=== PATIENT | female | born 1965 | race Caucasian/White ===

== ENCOUNTER → 2020-03-04 | Outpatient (CLI) | payer BC ==
--- NOTE | 2020-03-04 21:05 | RAD ---
EXAM DESCRIPTION: Foot,Right 3 Views: CR/DR/XR CLINICAL HISTORY: 54 years Female PAIN IN RIGHT FOOT COMPARISON: None. TECHNIQUE: 3 VIEWS AP. Lateral. Oblique. Right foot. FINDINGS: The Body part is in a cast which limits fine detail. Oblique fracture with minimal separation in the right fifth metatarsal. Distal metatarsal is displaced slightly medially. This MTP joint and fifth tarsometatarsal joints are intact. No other fractures. IMPRESSION: Slightly oblique fracture of the mid shaft of the right fifth metatarsal with tarsometatarsal joint and metatarsophalangeal joints intact. Electronically signed by: Alli Brian MD 03/04/2020 9:03 PM [facility]
--- NOTE | 2020-03-28 15:27 | RAD ---
EXAM DESCRIPTION: Foot,Right 3 Views: CR/DR/XR CLINICAL HISTORY: 54 years Female PAIN IN RIGHT FOOT COMPARISON: None. TECHNIQUE: 3 VIEWS AP. Lateral. Oblique. Right foot. FINDINGS: The Body part is in a cast which limits fine detail. Oblique fracture with minimal separation in the right fifth metatarsal. Distal metatarsal is displaced slightly medially. This MTP joint and fifth tarsometatarsal joints are intact. No other fractures. IMPRESSION: Slightly oblique fracture of the mid shaft of the right fifth metatarsal with tarsometatarsal joint and metatarsophalangeal joints intact. Electronically signed by: Alli Brian MD 03/04/2020 9:03 PM [facility]
== END ==
LOC: RAD 07:39
PROVIDERS: ATTEND Orthopaedic Surgery
DX: S92.351A Displaced fracture of fifth metatarsal bone, right foot, initial encounter for closed fracture (principal)

== ENCOUNTER → 2020-03-18 | Outpatient (CLI) | payer BC ==
--- NOTE | 2020-04-05 10:57 | RAD ---
EXAM DESCRIPTION: Foot,Right 3 Views CLINICAL HISTORY: 54 years Female, CLOSED FX OF FIFTH METATARSAL BONE COMPARISON: Right foot radiographs 03/04/2020 TECHNIQUE: 3 view radiograph of the right foot. IMPRESSION: Redemonstrated oblique fracture with slight separation as before through the fifth metatarsal without intra-articular extension. There is mild sclerosis along the fracture system with healing process. No acute displaced fracture. Remaining structures in normal anatomic alignment. No hallux size deformity. Lisfranc joint intact. Moderate calcaneal enthesophyte at the plantar fascia. No soft tissue defect or radiopaque foreign body. Electronically signed by: Leo Alex MD 04/05/2020 10:55 AM [facility]
== END ==
LOC: RAD 08:47
PROVIDERS: ATTEND Orthopaedic Surgery
DX: S92.354D Nondisplaced fracture of fifth metatarsal bone, right foot, subsequent encounter for fracture with routine healing (principal); M77.31 Calcaneal spur, right foot

== ENCOUNTER → 2020-04-15 | Outpatient (CLI) | payer BC ==
--- NOTE | 2020-04-16 13:32 | RAD ---
EXAM: Foot,Right 3 Views INDICATION: 54 years Female, FX OF FIFTH METATARSAL BONE COMPARISON: 3 views of the right foot 03/04/2020 and 03/18/2020 FINDINGS: 3 views of the right foot were performed. Redemonstrated subacute obliquely oriented fracture through the fifth metatarsal. Stable alignment. It appears that there may be some slight interval development of bony callus formation within the fracture cleft on the oblique view compared to the prior study of 03/10/2020. No new fractures are identified. No joint dislocation. No destructive osseous lesion. Plantar calcaneal spur. Persistent mild soft tissue edema in the dorsum of the foot. IMPRESSION: Compared to the prior study of 03/10/2020, alignment of an obliquely oriented fracture through the right foot fifth metatarsal is stable. There may have been some very slight interval bony callus formation across the fracture cleft. Electronically signed by: Marita Alvarez MD 04/16/2020 1:31 PM [facility]
== END ==
LOC: RAD 08:05
PROVIDERS: ATTEND Orthopaedic Surgery
DX: S92.354D Nondisplaced fracture of fifth metatarsal bone, right foot, subsequent encounter for fracture with routine healing (principal)